=== PATIENT | male | born 1995 | race Caucasian/White ===

== ENCOUNTER 2017-09-06 09:40 | Emergency (ER) | payer OTHER, BC ==
[~2017-09-06] VITALS: Ht 177.8 cm; Wt 90.7 kg
[2017-09-06] MEDS ORDERED: ACETAMINOPHEN325 M1 PO (10:11)
[2017-09-06] MEDS ORDERED: ZOFRAN ODT4 MG PO (10:11)
== END 2017-09-06 10:15 | disposition home or self-care (01) ==
LOC: ED 09:40
DX: S06.0X0A Concussion without loss of consciousness, initial encounter (principal); W22.8XXA Striking against or struck by other objects, initial encounter; Y92.89 Other specified places as the place of occurrence of the external cause; Y99.0 Civilian activity done for income or pay
CPT/HCPCS: 99283